=== PATIENT | female | born 1980 | race Two or more races ===

== ENCOUNTER 2022-09-06 16:25 | Inpatient (IN) | payer MEDICARE, MEDICAID ==
[~2022-09-06] VITALS: Ht 157.5 cm; Wt 108.0 kg
[2022-09-06 17:09] LABS: Basophils # (auto) 0.1 10 ^3/uL (0-0.2); Basophils % (auto) 1.2 % (0.0-2.0); Eosinophils # (auto) 0.1 10 ^3/uL (0-0.8); Eosinophils % (auto) 0.8 % (0.0-7.0); Hematocrit 35.5 % (36.0-46.0); Hemoglobin 11.9 g/dL (12.2-16.2); Lymphocytes # (auto) 1.3 10 ^3/uL (0.4-5.4); Lymphocytes % (auto) 13.2 % (10.0-50.0); Mean Corpuscular Hemoglobin 32.9 pg (28.0-32.0); Mean Corpuscular Hgb Conc. 33.6 g/dL (32.0-36.0); Mean Corpuscular Volume 97.9 fL (80.0-100.0); Monocytes # (auto) 0.3 10 ^3/uL (0-1.3); Monocytes % (auto) 3.6 % (0.0-12.0); Neutrophils # (auto) 7.7 10 ^3/uL (1.6-8.6); Neutrophils % (auto) 81.2 % (37.0-80.0); Nucleated Red Blood Cells % 0.1 %; Red Blood Cells 3.63 10^6/uL (4.0-5.20); Red Cell Distribution Width 15.1 % (11.8-14.3); White Blood Cell 9.5 10^3/uL (4.4-10.8)
[2022-09-06 17:40] LABS: Albumin 3.7 g/dL (3.4-5.0); BUN/Creatinine Ratio 5.2; Calcium 8.4 mg/dL (8.5-10.1); Potassium 3.5 mmol/L (3.5-5.1); Total Protein 8.3 g/dL (6.4-8.2)
[2022-09-06] MEDS ORDERED: ASPirin 81 mg TAB PO ONE (18:00)
[2022-09-06] MEDS ORDERED: hydrALAZINE HCL 20 MG/ML VL IV ONE (21:45)
[2022-09-06] MEDS ORDERED: HYDROcodone-ACET 5/325MG TAB PO ONE (21:45)
[2022-09-06] MEDS ORDERED: ACETAMINOPHEN 325 MG TAB PO PRN (23:15)
[2022-09-06] MEDS ORDERED: ONDANSETRON HCL 4 MG/2 ML VIAL IV PRN (23:15)
[2022-09-06] MEDS ORDERED: NITROGLYCERIN 0.4 MG SL TAB SL PRN (23:15)
[2022-09-06] MEDS ORDERED: TEMAZEPAM 15 MG CAP PO PRN (23:15)
[2022-09-06] MEDS ORDERED: MORPHINE SULFATE INJ 2 MG/ml SYRG IV PRN (23:15)
[2022-09-06] MEDS ORDERED: CARVEDILOL 3.125 MG TAB PO ONE (23:15)
[2022-09-06] MEDS ORDERED: DEXTROSE (50%) 50ML SYRG IV PRN (23:15)
[2022-09-07] MEDS: ACCU-CHEK COMFORT CURVE STRIP VI SCH ×5 (01:00→23:02)
[2022-09-07] MEDS: InsuLIN REG 1unit/0.01ml Soln (100units/ml) SC SCH ×5 (01:26→23:06)
[2022-09-07] MEDS: cloNIDine HCL 0.1 MG TAB PO PRN ×2 (02:14→23:14)
[2022-09-07 03:45] LABS: Basophils # (auto) 0.1 10 ^3/uL (0-0.2); Basophils % (auto) 0.9 % (0.0-2.0); Eosinophils # (auto) 0.1 10 ^3/uL (0-0.8); Eosinophils % (auto) 1.8 % (0.0-7.0); Hematocrit 31.3 % (36.0-46.0); Hemoglobin 10.2 g/dL (12.2-16.2); Lymphocytes # (auto) 1.4 10 ^3/uL (0.4-5.4); Lymphocytes % (auto) 18.6 % (10.0-50.0); Mean Corpuscular Hemoglobin 32.2 pg (28.0-32.0); Mean Corpuscular Hgb Conc. 32.7 g/dL (32.0-36.0); Mean Corpuscular Volume 98.5 fL (80.0-100.0); Monocytes # (auto) 0.3 10 ^3/uL (0-1.3); Monocytes % (auto) 3.7 % (0.0-12.0); Neutrophils # (auto) 5.7 10 ^3/uL (1.6-8.6); Nucleated Red Blood Cells % 0.1 %; Red Blood Cells 3.18 10^6/uL (4.0-5.20); Red Cell Distribution Width 15.1 % (11.8-14.3); White Blood Cell 7.7 10^3/uL (4.4-10.8)
[2022-09-07 03:57] LABS: Albumin 3.1 g/dL (3.4-5.0); Calcium 8.2 mg/dL (8.5-10.1); Potassium 3.7 mmol/L (3.5-5.1)
[2022-09-07 03:59] LABS: BUN/Creatinine Ratio 6.2
[2022-09-07 04:01] LABS: Bilirubin, Total 0.8 mg/dL (0.2-1.0); Total Protein 7.7 g/dL (6.4-8.2)
[2022-09-07 08:00] VITALS: BP 129/60
[2022-09-07 09:00] VITALS: BP 124/60
[2022-09-07] MEDS: hydrALAZINE HCL 25 MG TAB PO SCH ×2 (09:01→22:00)
[2022-09-07] MEDS: PANTOPRAZOLE 40 MG TAB PO SCH (09:02)
[2022-09-07] MEDS: CARVEDILOL 3.125 MG TAB PO SCH ×2 (09:02→22:12)
[2022-09-07] MEDS ORDERED: ASPirin 81 mg TAB PO SCH (10:00)
[2022-09-07 13:00] VITALS: BP 152/55
[2022-09-07 16:36] VITALS: BP 101/62
[2022-09-07 22:00] VITALS: BP 148/48
[2022-09-07] MEDS ORDERED: ATORVASTATIN 20 MG TAB PO SCH (22:00)
[2022-09-08 05:00] VITALS: BP 144/53
[2022-09-08] MEDS: ACCU-CHEK COMFORT CURVE STRIP VI SCH ×2 (06:14→12:43)
[2022-09-08] MEDS: InsuLIN REG 1unit/0.01ml Soln (100units/ml) SC SCH ×2 (06:16→12:43)
[2022-09-08 09:00] VITALS: BP 148/51
[2022-09-08] MEDS: PANTOPRAZOLE 40 MG TAB PO SCH (09:46)
[2022-09-08] MEDS: CARVEDILOL 3.125 MG TAB PO SCH (09:47)
[2022-09-08] MEDS: hydrALAZINE HCL 25 MG TAB PO SCH (09:47)
[2022-09-08 13:00] VITALS: BP 159/77
[2022-09-08 14:46] VITALS: BP 159/77
== END 2022-09-08 15:15 | disposition home or self-care (01) | DRG 640 ==
LOC: ER 16:25 → EDBD 16:25 → TELE 23:13 → TELE-EAST 09-07 08:05
PROVIDERS: ADMIT Nurse Practitioner; ATTEND Student in an Organized Health Care Education/Training Program
DX: E87.70 Fluid overload, unspecified (principal); N18.6 End stage renal disease; I16.1 Hypertensive emergency; Z68.41 Body mass index [BMI] 40.0-44.9, adult; I50.42 Chronic combined systolic (congestive) and diastolic (congestive) heart failure; I13.2 Hypertensive heart and chronic kidney disease with heart failure and with stage 5 chronic kidney disease, or end stage renal disease; Z20.822 Contact with and (suspected) exposure to COVID-19; E78.5 Hyperlipidemia, unspecified; E11.39 Type 2 diabetes mellitus with other diabetic ophthalmic complication; E66.01 Morbid (severe) obesity due to excess calories; E11.22 Type 2 diabetes mellitus with diabetic chronic kidney disease; Z99.2 Dependence on renal dialysis; Z91.199 Patient's noncompliance with other medical treatment and regimen due to unspecified reason; Z91.119 Patient's noncompliance with dietary regimen due to unspecified reason
CPT/HCPCS: 36415; 71045; 80053; 82962; 83880; 84484; 85025; 87426; 87804; 93005; 93306; 99291; G0378; J1815